=== PATIENT | male | born 1965 | race Two or more races ===

== ENCOUNTER 2019-03-05 14:33 | Emergency (ER) | payer MEDICARE, MEDICAID ==
[~2019-03-05] VITALS: Ht 167.6 cm; Wt 78.6 kg
--- NOTE | 2019-03-05 16:52 | NUR ---
TO ROOM FROM LOBBY, DR TELLO AT BEDSIDE TO EVAL PT
--- NOTE | 2019-03-05 16:57 | NUR ---
CONTACT WITH PT, 53 NYR OLD MALE HERE WITH C/O "I'M HERE BECAUSE MY LEGS ARE HURTING AND I'M HAVING A HARD TIME WALKING. I ALSO WANT ABX FOR MY MOUTH, MY TEETH ARE ALL ROTTEN" PT WITH YEIMI LEGS SWOLLEN, RED, SCATTERED SCABS TO LOWER LEGS/FEET"
[2019-03-05] MEDS ORDERED: AMIT100T PO (17:07)
[2019-03-05] MEDS ORDERED: ALLO300T PO (17:07)
[2019-03-05] MEDS ORDERED: NAPR-685 PO (17:07)
[2019-03-05] MEDS ORDERED: TIZA2CAP PO (17:07)
[2019-03-05] MEDS ORDERED: ARIP2TAB2 PO (17:07)
[2019-03-05 17:29] LABS: BASOPHILS # (AUTO) 0.02 x10^3/uL (0-0.1); BASOPHILS % (AUTO) 0 % (0-1); EOSINOPHILS # (AUTO) 0.19 x10^3/uL (0-0.4); EOSINOPHILS % (AUTO) 4 % (1-7); LYMPHOCYTES # (AUTO) 0.77 x10^3/uL (1-3.4); LYMPHOCYTES % (AUTO) 15 % (22-44); MD NO; MEAN CORPUSCULAR HEMOGLOBIN 29.3 pg (27.5-34.5); MEAN CORPUSCULAR HGB CONC 33.4 g/dL (33.2-36.2); MEAN CORPUSCULAR VOLUME 87.7 fL (81-97); MEAN PLATELET VOLUME 7.3 fL (7.4-10.4); MONOCYTES # (AUTO) 0.54 x10^3/uL (0.2-0.8); MONOCYTES % (AUTO) 11 % (2-9); NEUTROPHILS # (AUTO) 3.54 x10^3/uL (1.8-6.8); NEUTROPHILS % (AUTO) 70 % (42-75); PLATELET COUNT 309 x10^3/uL (130-400); RED BLOOD COUNT 4.69 x10^6/uL (4.38-5.82); RED CELL DISTRIBUTION WIDTH 15.8 % (9.4-14.8)
[2019-03-05 17:38] LABS: ALBUMIN 3.6 g/dL (3.4-5.0); ANION GAP 5 mmol/L (5-15); CALCIUM 9.3 mg/dL (8.5-10.1); CHLORIDE 108 mmol/L (98-107); CREATININE 0.98 mg/dL (0.7-1.3)
[2019-03-05 17:42] LABS: TROPONIN I < 0.015 ng/mL (0.000-0.045)
[2019-03-05 18:24] LABS: HCT (SEDRATE) 41.1 % (39.2-51.8)
[2019-03-05 18:28] VITALS: BP 190/118
--- NOTE | 2019-03-05 18:36 | NUR ---
DR TELLO AT BEDSIDE TO RE-EVAL PT
--- NOTE | 2019-03-05 18:38 | NUR ---
MD AWARE OF ELEVATED BP. NO NEW ORDERS. PT TO BE DC'D WITH RX FOR ANTIHYPERTENSIVE MEDICATION.
--- NOTE | 2019-03-05 18:59 | NUR ---
NO CHANGE IN PT CONDITION NOTED. NO IV TO DC. REVIEWED DC INSTRUCTIONS WITH PT, UNDERSTANDING VERBALIZED. PT LEFT AMB WITH WALKER.
== END 2019-03-05 19:01 | disposition home or self-care (01) ==
LOC: ED 18:55
DX: M32.9 Systemic lupus erythematosus, unspecified (principal); I10 Essential (primary) hypertension; F32.9 Major depressive disorder, single episode, unspecified; M10.9 Gout, unspecified
CPT/HCPCS: 36415; 80048; 82040; 83880; 84484; 84550; 85025; 85651; 93005; 93970; 99284; J7512